=== PATIENT | female | born 1970 | race Caucasian/White ===

== ENCOUNTER 2021-05-11 07:36 | Outpatient (CLI) | payer MEDICARE, SELFPAY ==
--- NOTE | ~2021-05-11 | MR_ITS ---
EXAMINATION: MR ankle LT wo con DATE: 05/11/2021 08:23 INDICATION: Chronic left ankle pain and swelling post fall 3 months prior TECHNIQUE: Magnetic resonance imaging (MRI) of the left ankle was performed without intravenous contr ast. Sequences included sagittal, coronal, and axial proton-density weighted fast spin echo without a nd with fat saturation. COMPARISON: None. FINDINGS: Medial ankle ligaments: Deep and superficial deltoid ligaments as well as the spring ligament are normal. Lateral ankle ligaments: The anterior and posterior inferior tibiofibular ligaments are normal. There is thickening and mild i ncreased signal of the anterior talofibular without surrounding edema consistent with scarring relate d to chronic sprain. The calcaneofibular and posterior talofibular ligaments are normal. Tendons: Achilles tendon is normal. Fluid signal surrounding the normal peroneus longus and brevis tendons con sistent with mild peroneal tenosynovitis. The tibialis anterior and extensor hallucis longus and exte nsor digitorum longus tendons are normal. The tibialis posterior, flexor digitorum longus and flexor hallucis longus tendons are normal. Plantar fascia: Plantar aponeurosis is normal. Bones/other: There is prominent marrow edema at the dorsolateral aspect of the cuboid which could represent a bone contusion although given the interval elapsed time this could also represent advanced images of heal ing of a prior nondisplaced fracture with no residual fracture line. Otherwise normal marrow signal. There is mild thickening and minimal increased signal of the calcaneocuboid as well as the bifurcate ligament without surrounding edema consistent with additional scarring related to chronic sprains. Li sfranc ligament complex is normal. Fluid: Visualized amount of fluid in the joint spaces. No bursitis or other abnormal fluid collections. IMPRESSION: 1. Chronic sprains of the anterior talofibular, plantar calcaneal cuboid and bifurcate ligaments. 2. Prominent marrow edema at the dorsolateral aspect of the cuboid which could represent either bone contusion or advanced changes of healing of a nondisplaced fracture with no residual discernible frac ture line. 3. Mild peroneal tenosynovitis. Reviewed, dictated and finalized at location A. IMPRESSION: 1. Chronic sprains of the anterior talofibular, plantar calcaneal cuboid and bi furcate ligaments. 2. Prominent marrow edema at the dorsolateral aspect of the cuboid which could represent either bone contusion or advanced changes of healing of a nondisplace d fracture with no residual discernible fracture line. 3. Mild peroneal tenosynovitis.
== END 2021-05-11 07:37 ==
DX: M25.572 Pain in left ankle and joints of left foot (principal); G89.29 Other chronic pain; S93.492A Sprain of other ligament of left ankle, initial encounter; M79.89 Other specified soft tissue disorders; M65.872 Other synovitis and tenosynovitis, left ankle and foot
CPT/HCPCS: 73721

== ENCOUNTER 2022-09-04 18:00 | Emergency (ER) | payer MEDICARE, SELFPAY ==
--- NOTE | ~2022-09-04 | XR_ITS ---
EXAMINATION: XR foot LT min 3V DATE: 09/04/2022 18:54 INDICATION: Left foot pain TECHNIQUE: Dorsoplantar, lateral, and 2 oblique views of the left foot were obtained. COMPARISON: None. FINDINGS: Bone alignment is normal. No fracture is identified. There is mild polyarticular osteoarthr itis. There is dorsal soft tissue swelling of the foot overlying the metacarpals. IMPRESSION: 1. No acute osseous abnormality. Reviewed, dictated and finalized at location F. ROAD TRACK MECHANIC
[2022-09-04 18:23] VITALS: BP 127/88; PULSE 128; RESP 16; TEMP 37.1; O2SAT 100
--- NOTE | 2022-09-04 19:24 | ED.LOWEXIN ---
HPI - Extremity Injury (Lower) General Chief Complaint: Extremity Injury, Lower Stated Complaint: L. foot injury Time Seen by Provider: 09/04/22 18:58 Source: RN notes reviewed History of Present Illness HPI Narrative: Patient presents emergency room from home for right foot pain. Patient states that approximately 12:30 PM today she was working out when a work-up says that she was pushing had fallen over and landed on her right foot she states she has had pain in the top of the right foot since that time states pain is worse with any placement of weight on the right foot. She denies any other trauma or injury states that she did take Tylenol at home with minimal relief she denies any numbness or tingling of the extremity Related Data Allergies Allergy/AdvReac Type Severity Reaction Status Date / Time No Known Allergies Allergy Unverified 06/09/15 23:26 Review of Systems Review of Systems: Gen.: Denies fevers or chills Musculoskeletal: See HPI Neuro: Denies numbness, tingling, weakness Skin: Denies rash Endo: Denies DM PMFSH Past Medical History Medical History Aureliano disease Depression Family History Family History (Updated 06/15/14 @ 07:13 by DOCTOR UNKNOWN) Mother Family history of primary malignant neoplasm of liver Family history of lymphoma Sibling Family history of type 2 diabetes mellitus Grandparent Family history of heart disease in male family member before age 55 Other Family history of type 1 diabetes mellitus Social History Social History Smoking status: Former smoker Second hand tobacco smoke exposure: No Smoking end date: 10/19/12 Alcohol intake: never Exam Narrative: APPEARANCE: No acute distress, nontoxic, resting in bed Eyes: EOMI HEENT: Normocephalic, atraumatic, RESPIRATORY: No respiratory distress MUSCULOSKELETAl: Tender to palpation over the dorsal medial lateral and plantar aspect of the right foot there is no swelling or ecchymosis noted there is no tenderness of the medial lateral malleolus no proximal small fibula tenderness dorsalis pedis pulse 2+ neurovascular intact pain with placing weight on the right foot NEURO: Awake and alert. Following commands, speech normal, no focal deficits SKIN:: Warm, dry. Normal Color no rash or lesions Course Course Emergency Course: Discussed with patient results of workup and diagnosis. Discussed need for follow-up with primary care, proper use of medication, and reasons to return to the emergency department. Patient understands and agrees to current treatment plan Vital Signs Vital signs: Vital Signs Temperature 98.7 F 09/04/22 18:23 Pulse Rate 128 H 09/04/22 18:23 Respiratory Rate 16 09/04/22 18:23 Blood Pressure 127/88 09/04/22 18:23 Pulse Oximetry 100 09/04/22 18:23 Temperature 98.7 F 09/04/22 18:23 Pulse Rate 128 H 09/04/22 18:23 Respiratory Rate 16 09/04/22 18:23 Blood Pressure 127/88 09/04/22 18:23 Pulse Oximetry 100 09/04/22 18:23 MDM - Extremity Injury (Lower) Imaging Data Radiologist's impression: ITS Impressions Foot X-Ray 09/04/22 18:56 IMPRESSION: 1. No acute osseous abnormality. Discharge Plan Discharge Clinical Impression: Contusion of left foot Patient Disposition: Home, Self-Care Condition: Stable Instructions: Antibiotic Form, Crush Injury (ED) Additional Instructions: Return for increasing pain numbness or tingling in extremities or any other symptoms or concern Prescriptions: New ibuprofen 600 mg tablet 600 mg PO TID PRN (Reason: pain) Qty: 14 0RF Follow-up/Referrals: Madhu Zuniga MD [Physician] - (Follow-up in 1 to 2 days for further orthopedic treatment and evaluation) UNKNOWN,DOCTOR [Primary Care Provider] - (Follow up with your primary care physician in 1 to 2 days for further treatment and
[2022-09-04] MEDS: IBUPROFEN 600 MG TABLET PO (19:27)
== END 2022-09-04 20:50 | disposition home or self-care (01) ==
LOC: ANHED 20:50
PROVIDERS: Emergency Provider Emergency Medicine
DX: S90.32XA Contusion of left foot, initial encounter (principal); Z87.891 Personal history of nicotine dependence; W20.8XXA Other cause of strike by thrown, projected or falling object, initial encounter
CPT/HCPCS: 73630; 99283; A9270

== ENCOUNTER 2023-07-09 00:31 | Emergency (ER) | payer MEDICARE, SELFPAY ==
--- NOTE | ~2023-07-09 | XR_ITS ---
Clinical Indication: Syncope AP and lateral views of the chest: Comparison: 01/23/2016 Findings: The lungs are clear, without evidence of focal consolidation or pleural effusion. Cardiome diastinal silhouette is within normal limits. Bones and soft tissues are unremarkable. Impression: Normal chest. Reviewed, dictated and finalized at [facility]. Impression: Normal chest.
[2023-07-09 00:19] VITALS: BP 114/80; PULSE 82; RESP 15; TEMP 36.9; O2SAT 98
--- NOTE | 2023-07-09 02:42 | ECG_ITS ---
Measurements Intervals [place] Rate: 79 P: 239 CA: 114 QRS: 72 QRSD: 94 T: 60 QT: 398 QTc: 458 Interpretive Statements SINUS RHYTHM MINIMAL Q WAVES- ANTEROLAT/INF LEADS BORDERLINE ECG NO PREVIOUS ECG AVAILABLE FOR COMPARISON Electronically Signed On 07-09-2023 6:40:18 CDT by Gurpreet Nina D.O.
[2023-07-09] MEDS: SODIUM CHLORIDE 0.9% IV 1,000 ML 999 ML IV CONT (03:04)
[2023-07-09 03:08] LABS: Basophils Absolute Auto 0.1 K/mm3 (0.0-0.1); Basophils Percent Auto 0.8 % (0.2-1.2); Eosinophils Absolute Auto 0.2 K/mm3 (0-0.3); Eosinophils Percent Auto 1.6 % (0-4.4); Hematocrit 40.8 % (37.0-47.0); Hemoglobin 13.7 g/dL (12.0-15.0); Immature Granulocyte Absolute 0.06 K/mm3 (0.00-0.031); Immature Granulocyte Percent A 0.6 % (0-0.5); Lymphocytes Absolute Auto 3.99 K/mm3 (0.9-3.2); Lymphocytes Percent Auto 39.3 % (18.3-44.2); Mean Corpuscular HGB Conc 33.6 g/dl (32-36); Mean Corpuscular Hemoglobin 30.6 pg (26-34); Mean Corpuscular Volume 91.1 fl (80-100); Mean Platelet Volume 9.1 fl (7.4-10.4); Monocytes Absolute Auto 0.7 K/mm3 (0.1-0.6); Neutrophils Absolute Auto 5.2 K/mm3 (1.3-6.7); Neutrophils Percent Auto 50.7 % (45.5-73.1); Platelet Count Result 431 k/mm3 (150-375); Red Blood Count 4.48 M/mm3 (4.2-5.4); Red Cell Distribution Width 12.1 % (11.5-14.5); White Blood Count 10.2 K/mm3 (4.5-10.0)
--- NOTE | 2023-07-09 03:08 | ED.SYNCOPE ---
HPI - Syncope General Chief Complaint: Syncope Stated Complaint: LETHARGIC/ETOH+ Time Seen by Provider: 07/09/23 02:57 Source: patient and family ( friend ) Limitations: no limitations History of Present Illness HPI narrative: Patient is a 53-year-old female present to the emergency department via EMS for overall not feeling well and is accompanied by her friend. 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 Patient notes that she went to a baseball game earlier today and had approximately 4-5 drinks of alcohol and then when they were driving home shoes in the past after she and her friend noticed she was getting more more drowsy and in the recovery moment which the patient was not responding to her friend for 4 minutes which he got worried and called EMS for further evaluation. Patient states that she is known to Dr. Velma Mason who is her endoscopy technican at [facility]. Patient denies chest pain, shortness of breath, cough, fever, lightheadedness, numbness, weakness, dysuria, hematuria, urinary frequency, urinary urgency, vaginal bleeding, rash, headache, diarrhea, nausea, vomiting, abdominal pain, vision changes, sore throat, nasal congestion, unilateral lower extremity swelling, recent injuries, recent illness. No seizure activity reported. Patient reports mild drowsiness and chronic fatigue. Patient admits to not drinking much water today. Related Data Allergies Allergy/AdvReac Type Severity Reaction Status Date / Time No Known Allergies Allergy Unverified 06/09/15 23:26 Review of Systems Review of Systems: A 10 system review of systems was completed on the patient and is negative except for what is stated in the HPI. Nursing and ancillary documentation was reviewed. [facility] Past Medical History Medical History [place] disease Depression Family History Family History (Updated 06/15/14 @ 07:13 by DOCTOR UNKNOWN) Mother Family history of primary malignant neoplasm of liver Family history of lymphoma Sibling Family history of type 2 diabetes mellitus Grandparent Family history of heart disease in male family member before age 55 Other Family history of type 1 diabetes mellitus Social History Social History Smoking status: Former smoker Second hand tobacco smoke exposure: No Smoking end date: 10/19/12 Alcohol intake: never Comments At time of signature, I have reviewed and agree with nursing past medical, surgical, social and family history unless otherwise noted. Please see the nursing chart for further information. There is no relevant family history pertinent to the presenting complaint. Exam Narrative: CONST: No acute distress. Well nourished. HENMT: Head is normocephalic and atraumatic. Dry mucous membranes. No posterior oropharynx erythema. EYES: No conjunctival icterus, injection, or pallor. PERRL. No nystagmus. NECK: No meningeal signs. No palpable thyromegaly. No thyroid tenderness to palpation. RESP: Able to speak in full sentences. Normal respiratory effort. CTAB. CARDIO: Regular rate. Regular rhythm. 2+ DP and radial pulses bilaterally. GI: Nondistended. No tenderness to palpation. Soft. : No CVA tenderness to palpation. SKIN: No rashes or lesions noted on exposed skin. NEURO: Oriented x3. Moves all extremities. No focal neurological deficits. EXTREM: No pedal edema. PSYCH: Normal affect. Course Vital Signs Vital signs: Vital Signs Temperature 98.5 F 07/09/23 00:19 Pulse Rate 82 07/09/23 00:19 Respiratory Rate 15 07/09/23 00:19 Blood Pressure 114/80 07/09/23 00:19 Pulse Oximetry 98 07/09/23 00:19 Oxyge
[2023-07-09 03:11] LABS: Appearance Urine Clear (Clear); Bilirubin Urine Negative (Negative); Blood Urine Negative (Negative); Color Urine Yellow (Yellow); Glucose Urine UA Negative (Negative); Ketones Urine Negative (Negative); Leukocyte Esterase Ur Negative LEU/UL (Negative); Nitrate Urine Negative (Negative); Protein Urine Negative (Negative); Specific Grav Ur 1.004 (1.001-1.035); Urobilinogen Urine 0.2 mg/dL (<2.0)
[2023-07-09 03:13] LABS: Add Urine Microscopic? NO
[2023-07-09 03:18] LABS: Alanine Aminotransferase 23 U/L (6-35); Alkaline Phosphatase 58 U/L (38-126); Anion Gap 14 mmol/L (8-16); Aspartate Amino Transferase 28 U/L (14-36); Bilirubin,Total 0.5 mg/dL (0.2-1.3); Blood Urea Nitrogen 13 mg/dL (7-17); Calcium 8.6 mg/dL (8.4-10.2); Carbon Dioxide 22 mmol/L (22-30); Chloride 101 mmol/L (98-107); Estimated CRCL calculation 74 ml/min; Estimated Glomerular Filt Rate > 60; Ethanol 142 mg/dL (<10); Glucose 89 mg/dL (65-110); Potassium 3.8 mmol/L (3.4-5.0); Sodium 137 mmol/L (137-145)
[2023-07-09 03:30] LABS: Troponin I < 0.012 ng/mL (0.000-0.034)
[2023-07-09 04:34] LABS: Influenza A QL RT-PCR Negative (Negative); Influenza B QL RT-PCR Negative (Negative); SARS-CoV-2 RNA PCR Negative (Negative)
[2023-07-09 05:06] VITALS: BP 112/64; PULSE 70; RESP 14; O2SAT 100
[2023-07-09 05:36] LABS: Magnesium 2.2 mg/dL (1.6-2.3)
== END 2023-07-09 05:06 | disposition home or self-care (01) ==
PROVIDERS: Physician Assistant; Emergency Provider Student in an Organized Health Care Education/Training Program; PCP Hospitalist
DX: R55 Syncope and collapse (principal); E27.1 Primary adrenocortical insufficiency; R78.0 Finding of alcohol in blood; Y90.6 Blood alcohol level of 120-199 mg/100 ml; Z20.822 Contact with and (suspected) exposure to COVID-19; Z87.891 Personal history of nicotine dependence; Z79.52 Long term (current) use of systemic steroids; R94.31 Abnormal electrocardiogram [ECG] [EKG]
CPT/HCPCS: 36415; 71046; 80053; 80307; 81003; 81025; 83735; 84443; 84484; 85025; 87636; 93005; 96360; 99284; J7030

== ENCOUNTER 2023-09-08 14:17 | Inpatient (IN) | payer MEDICARE, SELFPAY ==
[2023-09-08] VITALS (58 sets, daily range): BP systolic 77–117; BP diastolic 46–78; PULSE 69–110; RESP 12–37; TEMP 35.5–37.3; O2SAT 93–100; BMI 20.6
--- NOTE | ~2023-09-08 | XR_ITS ---
EXAMINATION: XR chest 1V portable Exam Date/Time: 09/08/2023 22:48 CHURN DRILLER HELPER HISTORY: line placement Comparison: CT chest, same date. RESULT: Lines, tubes, and devices: Right IJ central line terminating at the distal SVC. Lungs and pleura: Clear. Cardiomediastinal silhouette: Stable. Other: No acute osseous finding. Excreted contrast in the bilateral collecting systems which exhibit mild bilateral calyceal dilation and left renal pelvis dilation. IMPRESSION: No acute cardiopulmonary process. Incidental note of mild bilateral caliectasis and left pelviectasis. Reviewed, dictated and finalized at location K. N DRILLER HELPER
--- NOTE | ~2023-09-08 | XR_ITS ---
EXAMINATION: XR chest 1V portable Exam Date/Time: 09/08/2023 20:35 TIE KNITTER HELPER HISTORY: covid, hypotensive Comparison: . RESULT: Lines, tubes, and devices: None. Lungs and pleura: Mild diffuse reticulonodular opacities. Cardiomediastinal silhouette: Stable. Other: No acute osseous or upper abdominal finding. Diffuse osseous demineralization. IMPRESSION: Pulmonary opacities may represent acute/chronic respiratory bronchiolitis. Osteopenia. Reviewed, dictated and finalized at location K. KNITTER HELPER IMPRESSION: Pulmonary opacities may represent acute/chronic respiratory bronchiolitis. Oste openia.
--- NOTE | ~2023-09-08 | CT_ITS ---
EXAMINATION: CT soft tissue neck chest w DATE: 09/08/2023 21:39 INDICATION: TECHNIQUE: Computed tomography (CT) of the chest and neck was performed with 75 mL Omnipaque-350 intr avenous contrast. Automated exposure control and iterative reconstruction technique were employed. Th e dose-length product was 412.64 mGy-cm. COMPARISON: None FINDINGS: CTA neck: The thyroid gland is unremarkable. The submandibular and parotid glands are symmetric. There is no cervical lymphadenopathy. There are no masses identified. The superior mediastinum i s unremarkable. The airway is unremarkable. Parapharyngeal and pre-glottic fat planes are preserv ed. Normal enhancing arteries. The orbits are unremarkable. Visualized sinuses and mastoid air c ells are well aerated. There is cervical spondylosis. CT chest: Thoracic aorta: No significant dilation or calcification. Lung parenchyma and airways: Dependent atelectasis. Airways are clear. Thoracic inlet, axillae and chest wall: No thyroid or soft tissue mass. No axillary lymphadenopathy. Mediastinum: No mass or lymphadenopathy. Heart and pericardium: Normal heart size. No pericardial effusion. Coronary artery calcifications: Absent. Pleura: No effusion or mass. Upper abdomen: Moderate distal esophageal and gastric wall edema. Thoracic bones: No acute osseous finding in the chest. IMPRESSION: Moderate esophagitis/gastritis. No other acute process detected in the neck or chest. Reviewed, dictated and finalized at location K. TECHNICAL LEAD
--- NOTE | ~2023-09-08 | US_ITS ---
EXAMINATION: US renal BI DATE: 09/12/2023 10:56 INDICATION: caliectasis and pelviectasis shown on chest x ray TECHNIQUE: Multiple grayscale and Doppler ultrasound images of the kidneys were obtained. COMPARISON: X-ray chest 10/08/2023 FINDINGS: The right kidney measures 10.1 x 4.2 x 4.9 cm. The left kidney measures 10.5 x 5.0 x 4.6 cm. The kidn eys demonstrate normal parenchymal echogenicity. No suspicious renal masses. There is no mild right p elviectasis. The bladder is normal. IMPRESSION: Mild right pelviectasis, otherwise unremarkable renal sonogram findings. Reviewed, dictated and finalized at location K. OMICS PROFESSOR
--- NOTE | 2023-09-08 14:37 | PC.NURSE ---
pt has tremors upon arrival but states this is normal for her. no further orders at this time
--- NOTE | 2023-09-08 15:39 | ED.URI ---
HPI - URI/Sore Throat General Chief Complaint: Upper Respiratory Infection Stated Complaint: body aches/strep exposure Time Seen by Provider: 09/08/23 15:36 Source: patient History of Present Illness HPI Narrative: This is a 53 year old female who presents with myalgias and a sore throat. Her sister had Strep so she is concerned she was exposed. She has also been having a fever to max 101 F. She has been using Advil, last dose yesterday. She also felt chilled yesterday. She normally takes prednisone for her Addisons but didn't take it yesterday or today beecause not really eating or drinking. She states she doesn't have much energy. No cough, chest pain, or difficulty breathing. Related Data Allergies Allergy/AdvReac Type Severity Reaction Status Date / Time No Known Allergies Allergy Unverified 06/09/15 23:26 [facility] Past Medical History Medical History (Updated 09/09/23 @ 17:51 by Mai Gonzalez MD) [place] disease Depression Hypothyroidism Family History Family History Mother Family history of primary malignant neoplasm of liver Family history of lymphoma Sibling Family history of type 2 diabetes mellitus Grandparent Family history of heart disease in male family member before age 55 Other Family history of type 1 diabetes mellitus Social History Social History Smoking status: Former smoker Tobacco type: cigarettes Second hand tobacco smoke exposure: No Smoking end date: 10/19/02 Alcohol intake: current Drinks per week: 1 Substance use: never Substance use type: does not use Lack of Transportation: No Lack of Food: Never True Current Housing: I Have Housing Concerned About Future Housing: No Difficulty Paying Gas/Electric Bills: No Difficulty Paying for Meds: No Currently Unemployed: No Education: Decline to Answer Difficulty w/ Childcare or Family Care: No Spiritual care concerns: No Exam Narrative: GENERAL: well-nourished, appears tired. HEAD: Normocephalic, atraumatic. EYES: Grossly normal. No scleral icterus. Non injected ENT: Nares clear, no rhinorrhea or epistaxis. Mucous membranes moist. Difficulty visualizing posterior oropharynx due to Mallampati III but do appreciate erythematous posterior oropharynx. . NECK: Supple. Mild tender right cervical lymphadenopathy. No JVD CHEST: Clear to auscultation. No respiratory distress. HEART: Regular rate and rhythm. Normal peripheral pulses. ABDOMEN: Soft, nontender, nondistended, EXTREMITIES: Normal range of motion. No edema. SKIN: Warm, dry, no rash. NEURO: No focal deficits. Alert and oriented x3. Course Vital Signs Vital signs: Vital Signs Temperature 99.1 F 09/08/23 14:19 Pulse Rate 110 H 09/08/23 14:19 Respiratory Rate 16 09/08/23 14:19 Blood Pressure 77/55 L 09/08/23 14:19 Pulse Oximetry 100 09/08/23 14:19 Temperature 98.0 F 09/09/23 16:00 Pulse Rate 60 09/09/23 16:00 Respiratory Rate 16 09/09/23 16:00 Blood Pressure 90/53 L 09/09/23 16:00 Pulse Oximetry 100 09/09/23 16:00 Oxygen Delivery Room Air 09/09/23 09:18 Oxygen Flow Rate 1 09/08/23 19:57 Procedures Central Line Placement Right IJ: Central Line Date: 09/08/23 Central Line Time: 22:22 Discussed w/ the patient/family/POA,the placement of a central venous catheter, including its clinical necessity/indication & associated potential risks, benifits and alternatives.: Yes The patient/family/POA understand(s) and acknowledge(s) the need to proceed with central venous catheter insertion as an important element of the patient's clinical management.: Yes Performed Emergently - Given emergent patient condition, temporal constraints may have precluded informed consent.: Yes Time Out Performed: Yes Patient Placed on Monitor/Pulse Ox: Yes Max. Sterile B
[2023-09-08] MEDS: SODIUM CHLORIDE 0.9% IV 1,000 ML 999 ML IV CONT (16:15)
[2023-09-08 16:31] LABS: Basophils Absolute Auto 0.1 K/mm3 (0.0-0.1); Basophils Percent Auto 0.6 % (0.2-1.2); Eosinophils Absolute Auto 0.1 K/mm3 (0-0.3); Eosinophils Percent Auto 0.7 % (0-4.4); Hemoglobin 14.1 g/dL (12.0-15.0); Immature Granulocyte Absolute 0.09 K/mm3 (0.00-0.031); Immature Granulocyte Percent A 0.7 % (0-0.5); Lymphocytes Absolute Auto 4.45 K/mm3 (0.9-3.2); Lymphocytes Percent Auto 32.6 % (18.3-44.2); Mean Corpuscular HGB Conc 33.6 g/dl (32-36); Mean Corpuscular Hemoglobin 30.9 pg (26-34); Mean Corpuscular Volume 92.1 fl (80-100); Mean Platelet Volume 9.3 fl (7.4-10.4); Monocytes Absolute Auto 2.1 K/mm3 (0.1-0.6); Monocytes Percent Auto 15.2 % (2.6-8.5); Neutrophils Absolute Auto 6.9 K/mm3 (1.3-6.7); Neutrophils Percent Auto 50.2 % (45.5-73.1); Platelet Count Result 341 k/mm3 (150-375); Red Blood Count 4.56 M/mm3 (4.2-5.4); Red Cell Distribution Width 12.4 % (11.5-14.5); White Blood Count 13.7 K/mm3 (4.5-10.0)
[2023-09-08 16:51] LABS: Alanine Aminotransferase 13 U/L (6-35); Albumin Level 4.8 g/dL (3.5-5.1); Alkaline Phosphatase 63 U/L (38-126); Anion Gap 12 mmol/L (8-16); Aspartate Amino Transferase 28 U/L (14-36); Bilirubin,Total 1.1 mg/dL (0.2-1.3); Blood Urea Nitrogen 25 mg/dL (7-17); Calcium 9.3 mg/dL (8.4-10.2); Carbon Dioxide 23 mmol/L (22-30); Chloride 90 mmol/L (98-107); Estimated CRCL calculation 41 ml/min; Estimated Glomerular Filt Rate 47; Glucose 66 mg/dL (65-110); Potassium 4.1 mmol/L (3.4-5.0); Sodium 125 mmol/L (137-145)
[2023-09-08 17:00] LABS: Creatine Kinase 27 U/L (30-135)
[2023-09-08 17:02] LABS: Influenza A QL RT-PCR Negative (Negative); Influenza B QL RT-PCR Negative (Negative); SARS-CoV-2 RNA PCR Positive (Negative)
[2023-09-08 17:05] LABS: Strep Group A RT-PCR NOT DETECTED (Negative)
[2023-09-08] MEDS: ACETAMINOPHEN 500 MG TABLET 1000 MG PO (18:22)
[2023-09-08 18:28] LABS: Monoscreen Negative (Negative); Negative Monotest Control Negative (Negative); Positive Monotest Control Positive (Positive)
[2023-09-08] MEDS: LACTATED RINGERS 1,000 ML 125 ML IV CONT (18:47)
[2023-09-08] MEDS: HYDROCORTISONE SODIUM SUCCINATE 100 MG/2 ML VIAL IV PUSH (19:38)
[2023-09-08] MEDS: LACTATED RINGERS 1,000 ML 999 ML IV CONT (19:38)
--- NOTE | 2023-09-08 19:47 | PC.NURSE ---
while sleeping pt O2 sat dropped to 88-89% with good wave form. applied O2 NC 2L per MD verbal orders.
--- NOTE | 2023-09-08 20:34 | PC.NURSE ---
called report @2008 and [facility] stated they were in contact with ED charge nurse about assignment because they do not feel comfortable accepting a pt with their BP readings. no further orders at this time. ER charge nurse and MD notified
--- NOTE | 2023-09-08 20:35 | PM.IMHP ---
H&P: HPI History of Present Illness Date/Time: 09/08/23 20:35 Chief Complaint: ALTERED MENTAL STATUS Narrative: This is a 53-year-old female with past medical history significant for [place]'s disease. Patient presented to the emergency room due to altered mental status, in emergency room patient was hypotensive which prompted a stress does steroids which temporarily helped improved blood pressure however patient became hypotensive later on. At the time of my visit I was unable to obtain any history as patient is obtunded, lethargic. Most of the history has been obtained upon reviewing medical records and friend who was at bedside stated that she has not been feeling well for the last 2 days or so. Preliminary workup was significant for sodium of 125, chloride 90, BUN 25, creatinine 1.2, tested positive for COVID. Patient has been admitted for further evaluation management and treatment. EXAMINATION:? XR chest 1V portable Exam Date/Time:? 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 Comparison: . RESULT: Lines, tubes, and devices:? None. Lungs and pleura: Mild diffuse reticulonodular opacities. Cardiomediastinal silhouette:? Stable. Other:? No acute osseous or upper abdominal finding. Diffuse osseous demineralization. ? IMPRESSION: Pulmonary opacities may represent acute/chronic respiratory bronchiolitis. Osteopenia. EXAMINATION: CT soft tissue neck chest w DATE: 09/08/2023 21:39 INDICATION: TECHNIQUE: Computed tomography (CT) of the chest and neck was performed with 75 mL Omnipaque-350 intravenous contrast. Automated exposure control and iterative reconstruction technique were employed. The dose-length product was 412.64 mGy-cm. COMPARISON: None FINDINGS: CTA neck:? The thyroid gland is unremarkable. ? The submandibular and parotid glands are symmetric. ? There is no cervical lymphadenopathy.? There are no masses identified.? ? The superior mediastinum is unremarkable. ? The airway is unremarkable. ? Parapharyngeal and pre-glottic fat planes are preserved. ? Normal enhancing arteries.? The orbits are unremarkable. ? Visualized sinuses and mastoid air cells are well aerated.? There is cervical spondylosis. CT chest: Thoracic aorta: No significant dilation or calcification. Lung parenchyma and airways: Dependent atelectasis. Airways are clear. Thoracic inlet, axillae and chest wall: No thyroid or soft tissue mass. No axillary lymphadenopathy. Mediastinum: No mass or lymphadenopathy. Heart and pericardium: Normal heart size. No pericardial effusion. Coronary artery calcifications: Absent. Pleura: No effusion or mass. Upper abdomen: Moderate distal esophageal and gastric wall edema. Thoracic bones: No acute osseous finding in the chest. IMPRESSION: Moderate esophagitis/gastritis. No other acute process detected in the neck or chest. Review of Systems Review of Systems: ROS unobtainable: Yes unobtainable due to mental status (Obtundation /lethargy) [facility] Past Medical History Medical History (Updated 09/09/23 @ 02:33 by Evelio Chappell MD) Aureliano disease Depression Family History Family History Mother Family history of primary malignant neoplasm of liver Family history of lymphoma Sibling Family history of type 2 diabetes mellitus Grandparent Family history of heart disease in male family member before age 55 Other Family history of type 1 diabetes mellitus Social History Social History Smoking status: Former smoker Tobacco type: cigarettes Second hand tobacco smoke exposure: No Smoking end date: 10/19/02 Alcohol intake: current Drinks per week: 1 Substance use: never Substance use type: does not use Lack of Transportation: No Lack of Food: Never True Current Housing: I Have Housing Concerned About Future Housing: No Difficulty Paying Gas/Elect
[2023-09-08 21:17] LABS: Lactic Acid Reflex 0.8 mmol/L (0.7-2.0)
[2023-09-08 21:25] LABS: NT Pro B Type Natriuretic Pept 22 pg/mL (19.9-100)
[2023-09-08] MEDS: NOREPINEPHRINE 8 MG/D5W 250 ML 8 MG/250 ML BAG 9.38 MG IV CONT (22:21)
[2023-09-08 23:00] LABS: Appearance Urine Cloudy (Clear); Bacteria Urine None Seen /hpf; Bilirubin Urine Negative (Negative); Blood Urine Negative (Negative); Color Urine Yellow (Yellow); Glucose Urine UA Negative (Negative); Ketones Urine 1+ mg/dL (Negative); Leukocyte Esterase Ur Negative LEU/UL (Negative); Nitrate Urine Negative (Negative); Non Pathogenic Casts 0-2; Protein Urine Negative (Negative); RBC Urine 0-2 /hpf (0-2); Specific Grav Ur 1.015 (1.001-1.035); Squamous Epithelial Cell Urine None seen /hpf (Few); Urobilinogen Urine 0.2 mg/dL (<2.0); WBC Urine 0-5 /hpf; pH Urine 5.5 (5.0-9.0)
[2023-09-08 23:05] LABS: Add Urine Microscopic? YES
--- NOTE | 2023-09-08 23:09 | PC.NURSE ---
norepinephrine and LR are now going through central line instead of peripheral iv.
[2023-09-08] MEDS: AZITHROMYCIN 500 MG/NS 250 ML 500 MG/250 ML BAG 250 MG IVPB (23:36)
--- NOTE | 2023-09-08 23:50 | ADMGEN ---
This patient, Krista Chavira, was admitted to Intensive Care Unit-7. Patient/family oriented to hospital policies and general routines including ID bracelet, bed and alarms, visiting hours, pain management, procedures, bathroom and other care routines, personal items, smoking policy, room service/diet, and visiting hours. Information on how to activate the Rapid Response Team has been discussed. Patient/Family are encouraged to report perceived risks to care and to ask questions if they do not understand what they are told or what they should do.
[2023-09-09] VITALS (41 sets, daily range): BP systolic 79–113; BP diastolic 49–70; PULSE 55–86; RESP 11–17; TEMP 35.4–36.7; O2SAT 96–100
--- NOTE | 2023-09-09 | ECHO_ITS ---
Patient Info Name: Krista Chavira Age: 53 years : 1970 Gender: Female Ht: 63 in Wt: 116 lbs BSA: 1.53 m2 HR: 67 bpm BP: 101 / 67 mmHg Heart Rhythm: Sinus Rhythm Technical Quality: Good Exam Date: 09/09/2023 9:03 AM Exam Location: Echo Lab Patient Status: Inpatient Admit Date: 09/08/2023 Staff Ordering Physician: Evelio Chappell MD Straight Line Press Setter: Nahid Arevalo RDCS Attending Provider: Srini Martini MD Referring Physician: Ta LE; Exam Type: CA echo doppler color flow Study Info Indications - hypotension Complete two-dimensional, color flow and Doppler transthoracic echocardiogram is performed. Summary 1. Complete two-dimensional, color flow and Doppler transthoracic echocardiogram is performed. 2. Left ventricular chamber dimension is normal. 3. Left ventricular systolic function is normal, estimated at 65-70%. 4. There is no increased left ventricular wall thickness. 5. The left ventricular diastolic function is normal. 6. There is mild tricuspid valve regurgitation. Left Ventricle Left ventricular chamber dimension is normal. Left ventricular systolic function is normal, estimated at 65-70%. There is no increased left ventricular wall thickness. The left ventricular diastolic function is normal. Right Ventricle Right ventricular chamber dimension is normal. Right ventricular systolic function is normal. Left Atria Left atrial chamber dimension is normal. Right Atria Right atrial chamber dimension is normal. Atrial Septum Intact interatrial septum visualized by color flow imaging. Aortic Valve The aortic valve is trileaflet. There is mild aortic valve sclerosis. There is no aortic valve stenosis. There is trace aortic valve regurgitation. Pulmonic Valve The pulmonic valve is normal. There is no pulmonic valve stenosis. There is trace pulmonic regurgitation. Mitral Valve The mitral valve has normal leaflets. There is no mitral valve stenosis. There is trace mitral valve regurgitation. Tricuspid Valve The tricuspid valve leaflets are normal. There is no significant tricuspid valve stenosis. There is mild tricuspid valve regurgitation. No pulmonary hypertension, estimated pulmonary arterial systolic pressure is 21 mmHg. Pericardium/Pleural The pericardium appears epicardial fat pad. There is trivial pericardial effusion. Aorta The aortic root size at the sinus of Valsalva is normal. Left Ventricular Outflow Tract Name Value Normal LVOT 2D LVOT Diameter 1.9 cm LVOT Doppler LVOT Peak Gradient 3 mmHg LVOT Mean Gradient 2 mmHg LVOT VTI 20 cm LVOT VTI/AV VTI Ratio 0.8 LVOT Stroke Volume 55 ml LVOT CO 3.9 l/min LVOT CI 2.6 l/min/m2 Pulmonic Valve Name Value Normal RVOT Doppler
--- NOTE | 2023-09-09 00:45 | PC.NURSE ---
Unable to obtain home medications at this time. Patient does not have list and is unable to provide dosages of medications taken at home. Will need to call pharmacy to obtain this information.
[2023-09-09] MEDS: LACTATED RINGERS 1,000 ML 125 ML IV CONT (02:39)
[2023-09-09] MEDS: HYDROCORTISONE SODIUM SUCCINATE 100 MG/2 ML VIAL IV PUSH ×3 (05:13→21:13)
[2023-09-09] MEDS: ENOXAPARIN 40 MG/0.4 ML SYRINGE SUB-Q (08:47)
[2023-09-09] MEDS: ACETAMINOPHEN 325 MG TABLET 650 MG PO (08:47)
--- NOTE | 2023-09-09 09:01 | WPDCNINT ---
Assessment and Plan Assessment and plan (1) Hypotension: Code(s): I95.9 - Hypotension, unspecified Status: Acute Assessment and Plan: Patient was found to be hypotensive in the ER. Her lactic acid level was normal. Likely multifactorial secondary to overly me, dehydration, adrenal insufficiency and possible sepsis Continue IV fluids Continue Levophed titration Continue stress dose hydrocortisone (2) Hypothyroidism: Code(s): E03.9 - Hypothyroidism, unspecified Status: Acute Assessment and Plan: Check TSH Resume levothyroxine (3) Sepsis: Code(s): A41.9 - Sepsis, unspecified organism Status: Acute Assessment and Plan: Patient presented with findings consistent with sepsis She does have pharyngitis which most likely is viral secondary to COVID-19 Patient was given empiric antibiotics for pneumonia but her CT scan did not show any inflammation Strep testing was negative Will hold further antibiotics at this time (4) JAMIN (acute kidney injury): Code(s): N17.9 - Acute kidney failure, unspecified Status: Acute Assessment and Plan: Likely secondary to hypotension and dehydration Continue IV fluids Monitor urine output electrolytes and creatinine If it does not improve with IV fluids, will do further testing including Normal CK level (5) COVID-19: Code(s): U07.1 - COVID-19 Status: Acute Assessment and Plan: Patient tested positive for COVID-19. 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 This critical care time included obtaining a history; examining the patient; pulse oximetry; ordering and review of studies; arranging urgent treatment with development of a management plan; evaluation of patient's response to treatment; frequent reassessment; and discussions with other providers. It was exclusive of separately billable procedures and treating other patients and teaching time. Please see Assessment and Plan section and the rest of the note for further information on patient assessment and treatment News Librarian Consult Note Consult date: 09/09/23 Reason for consult: Hypotension HPI: Krista Chavira is a 53 year old female with past medical history of Dallam's disease depression and hypothyroidism who presented to ER today last night with feeling off body aches weakness and sore throat. Patient states that from last few days she has had body aches, low-grade fever, sore throat and feeling weak and tired. She felt nauseous but denies any vomiting. No abdominal pain. She denies any chest pain cough shortness of breath. She denies any dysuria hematuria hematemesis melena. No constipation. On Thursday she had few episodes of loose bowel movements but no blood in it. She she denies any exposure to anyone who is sick or eating outside. She is vaccinated against COVID, denies any smoking, drinks alcohol once a week and denies any other drug use.. In the ED patient was found to be hypotensive, elevated creatinine at 1.2, tested positive for COVID, CT neck and chest were unremarkable. Was given IV fluid bolus, started on Levophed, right IJ central venous catheter was placed as and admitted to IC
[2023-09-09 09:05] LABS: Basophils Percent Auto 0.2 % (0.2-1.2); Hematocrit 34.1 % (37.0-47.0); Hemoglobin 11.5 g/dL (12.0-15.0); Immature Granulocyte Absolute 0.12 K/mm3 (0.00-0.031); Immature Granulocyte Percent A 0.9 % (0-0.5); Lymphocytes Absolute Auto 1.09 K/mm3 (0.9-3.2); Lymphocytes Percent Auto 8.3 % (18.3-44.2); Mean Corpuscular HGB Conc 33.7 g/dl (32-36); Mean Corpuscular Hemoglobin 31.1 pg (26-34); Mean Corpuscular Volume 92.2 fl (80-100); Mean Platelet Volume 9.2 fl (7.4-10.4); Monocytes Absolute Auto 0.4 K/mm3 (0.1-0.6); Neutrophils Absolute Auto 11.5 K/mm3 (1.3-6.7); Neutrophils Percent Auto 87.6 % (45.5-73.1); Platelet Count Result 296 k/mm3 (150-375); Red Cell Distribution Width 12.1 % (11.5-14.5); White Blood Count 13.1 K/mm3 (4.5-10.0)
[2023-09-09 09:17] LABS: Alanine Aminotransferase 13 U/L (6-35); Albumin Level 3.4 g/dL (3.5-5.1); Alkaline Phosphatase 46 U/L (38-126); Anion Gap 6 mmol/L (8-16); Aspartate Amino Transferase 21 U/L (14-36); Bilirubin,Total 0.4 mg/dL (0.2-1.3); Blood Urea Nitrogen 18 mg/dL (7-17); Calcium 8.3 mg/dL (8.4-10.2); Carbon Dioxide 24 mmol/L (22-30); Chloride 102 mmol/L (98-107); Estimated CRCL calculation 68 ml/min; Estimated Glomerular Filt Rate > 60; Glucose 136 mg/dL (65-110); Magnesium 1.8 mg/dL (1.6-2.3); Potassium 4.1 mmol/L (3.4-5.0); Sodium 132 mmol/L (137-145)
[2023-09-09 09:58] LABS: Procalcitonin 0.1 ng/mL
[2023-09-09] MEDS: PANTOPRAZOLE 40 MG TABLET PO (10:26)
[2023-09-09] MEDS: LEVOTHYROXINE SODIUM 125 MCG TABLET PO (10:26)
[2023-09-09] MEDS: LACTATED RINGERS 1,000 ML 75 ML IV CONT ×2 (10:29→21:57)
[2023-09-09 11:19] LABS: Free T4 Free Thyroxine Reflex 0.57 ng/dL (0.78-2.19)
[2023-09-09] MEDS: ALBUMIN HUMAN 5% 250 ML IV CONT (11:20)
[2023-09-09] MEDS: MIDODRINE HCL 10 MG TABLET PO ×2 (14:06→17:00)
--- NOTE | 2023-09-09 17:05 | PM.IMPN ---
Progress Note: A&P Assessment and Plan (1) Hypotension: Code(s): I95.9 - Hypotension, unspecified Status: Acute Assessment and Plan: Patient still hypotensive Patient need norepinephrine likely multifactorial secondary to overly me, dehydration, adrenal insufficiency and possible sepsis Continue IV fluids On levophed titration Continue stress dose hydrocortisone (2) Hypothyroidism: Code(s): E03.9 - Hypothyroidism, unspecified Status: Acute Assessment and Plan: Check TSH Resume levothyroxine (3) Sepsis: Code(s): A41.9 - Sepsis, unspecified organism Status: Acute Assessment and Plan: Patient was given empiric antibiotics for pneumonia but her CT scan did not show any inflammation Strep testing was negative Will hold further antibiotics at this time (4) JAMIN (acute kidney injury): Code(s): N17.9 - Acute kidney failure, unspecified Status: Acute Assessment and Plan: Avoid nephrotoxic medication, wrist blood pressure Monitor urine output electrolytes and creatinine Normal CK level (5) COVID-19: Code(s): U07.1 - COVID-19 Status: Acute Assessment and Plan: Patient tested positive for COVID-19. She is on room air CT scan does not show any inflammatory changes in the lung No specific treatment COVID-19 except isolation and symptomatic treatment (6) [place] disease: Code(s): E27.1 - Primary adrenocortical insufficiency Status: Acute Assessment and Plan: Patient has history of Z[place] disease and was taking her prednisone and Florinef until Thursday Continue hydrocortisone Plan DVT prophylaxis -Lovenox Stress ulcer prophylaxis -Protonix Nutrition -diet ordered Code Status - Full Code Subjective Date/time seen: 09/09/23 17:05 Interval history: I saw and examined patient today, patient feels tired, blood pressure still, patient is on norepinephrine, no new issue even overnight Exam Narrative: General: Pt is alert awake and in NAD Lungs/Chest: Trachea central Clear BS B/L, No crackles or wheezing. Cardiac: RRR. Normal S1 S2. No murmurs Circulation: Pedal pulses are intact and symmetrical. Abdomen: Normal bowel sounds.. Soft. NT. ND. Extremities: No clubbing, cyanosis or edema. Warm : Batista in place Neurologic: Follows commands. Moves all 4 extremities PERRL Skin: No Rash HEENT: Redness on the lateral and posterior aspect of pharynx Objective Data Vital Signs Vital Signs: Vital Signs - 24 hr 09/08/23 17:11 09/08/23 17:15 09/08/23 17:21 Temperature Pulse Rate 90 91 92 Respiratory Rate 17 14 12 Blood Pressure 114/78 101/77 Pulse Oximetry Oxygen Delivery Oxygen Flow Rate 09/08/23 17:49 09/08/23 17:51 09/08/23 18:00 Temperature Pulse Rate 103 H 98 95 Respiratory Rate 16 14 18 Blood Pressure 108/69 Pulse Oximetry Oxygen Delivery Oxygen Flow Rate 09/08/23 18:01 09/08/23 18:11 09/08/23 18:15 Temperature Pulse Rate 95 102 H 100 Respiratory Rate 18 21 H 20 Blood Pressure 103/68 102/69 Pulse Oximetry 100 Oxygen Delivery Oxygen Flow Rate 09/08/23 18:33 09/08/23 18:41 09/08/23 18:45 Temperature Pulse Rate 93 92 95 Respiratory Rate 16 18 25 H Blood Pressure 83/49 L Pulse Oximetry Oxygen Delivery Oxygen Flow Rate 09/08/23 19:00 09/08/23 19:01 09/08/23 19:11 Temperature Pulse Rate 93 94 99 Respiratory Rate 19 19 20 Blood Pressure 85/55 L 87/60 L Pulse Oximetry 96 96 100 Oxygen Delivery Oxygen Flow Rate 09/08/23 19:12 09/08/23 19:15 09/08/23 19:21 Temperature Pulse Rate 95 91 89 Respiratory Rate 20 12 18 Blood Pressure 94/64 L Pulse Oximetry 98 99 96 Oxygen Delivery Oxygen Flow Rate 09/08/23 19:30 09/08/23 19:31 09/08/23 19:57 Temperature Pulse Rate 88 87 Respiratory Rate 17 17 Blood Pressure 88/61 L Pulse Oximetry 93 93 97 Oxygen Delivery Nasal Cannula O
--- NOTE | 2023-09-09 22:05 | ECG_ITS ---
Measurements Intervals [place] Rate: 55 P: 77 [place]: 190 QRS: 69 QRSD: 94 T: 64 QT: 495 QTc: 476 Interpretive Statements SINUS BRADYCARDIA BORDERLINE T WAVE ABNORMALITY- ANTERIOR LEADS BASELINE WANDER- AVR, AVL, AVF, V4-V5 ABNORMAL ECG COMPARED TO ECG 07/09/2023 00:25:52 SINUS BRADYCARDIA NOW PRESENT Electronically Signed On 09-10-2023 8:46:42 ANESTHESIA ASSISTANT by Gurpreet Nina D.O.
[2023-09-10] VITALS (17 sets, daily range): BP systolic 86–111; BP diastolic 55–78; PULSE 46–72; RESP 12–16; TEMP 36.2–36.9; O2SAT 99–100
[2023-09-10 04:48] LABS: Hematocrit 29.5 % (37.0-47.0); Hemoglobin 9.9 g/dL (12.0-15.0); Mean Corpuscular HGB Conc 33.6 g/dl (32-36); Mean Corpuscular Hemoglobin 31.2 pg (26-34); Mean Corpuscular Volume 93.1 fl (80-100); Mean Platelet Volume 9.4 fl (7.4-10.4); Platelet Count Result 296 k/mm3 (150-375); Red Blood Count 3.17 M/mm3 (4.2-5.4); Red Cell Distribution Width 12.4 % (11.5-14.5)
[2023-09-10 05:00] LABS: Alanine Aminotransferase 14 U/L (6-35); Albumin Level 2.7 g/dL (3.5-5.1); Alkaline Phosphatase 38 U/L (38-126); Anion Gap 5 mmol/L (8-16); Aspartate Amino Transferase 28 U/L (14-36); Bilirubin,Total 0.3 mg/dL (0.2-1.3); Blood Urea Nitrogen 9 mg/dL (7-17); Calcium 7.1 mg/dL (8.4-10.2); Carbon Dioxide 23 mmol/L (22-30); Chloride 109 mmol/L (98-107); Estimated CRCL calculation 92 ml/min; Estimated Glomerular Filt Rate > 60; Glucose 97 mg/dL (65-110); Magnesium 1.7 mg/dL (1.6-2.3); Potassium 3.2 mmol/L (3.4-5.0); Sodium 137 mmol/L (137-145)
[2023-09-10] MEDS: HYDROCORTISONE SODIUM SUCCINATE 100 MG/2 ML VIAL IV PUSH ×3 (05:36→21:14)
[2023-09-10] MEDS: LEVOTHYROXINE SODIUM 125 MCG TABLET PO (05:36)
[2023-09-10] MEDS: PANTOPRAZOLE 40 MG TABLET PO (08:47)
[2023-09-10] MEDS: MIDODRINE HCL 10 MG TABLET PO ×3 (08:47→16:32)
[2023-09-10] MEDS: ACETAMINOPHEN 325 MG TABLET 650 MG PO (08:47)
[2023-09-10] MEDS: ENOXAPARIN 40 MG/0.4 ML SYRINGE SUB-Q (08:48)
--- NOTE | 2023-09-10 10:41 | WPDINTPN ---
Progress Note: A&P Assessment and Plan (1) Hypotension: Qualifiers: Hypotension type: other hypotension type Qualified Code(s): I95.89 - Other hypotension Code(s): I95.9 - Hypotension, unspecified Status: Acute Assessment and Plan: Patient was found to be hypotensive in the ER. Her lactic acid level was normal. Likely multifactorial secondary to hypovolemia, dehydration, adrenal insufficiency and possible sepsis Blood pressure is now improved and patient has been weaned off Levophed Will discontinue further iV fluids Continue stress dose hydrocortisone (2) Hypothyroidism: Code(s): E03.9 - Hypothyroidism, unspecified Status: Acute Assessment and Plan: Patient's TSH is high and T4 is low Her compliance is questionable I have resumed her levothyroxine (3) Sepsis: Qualifiers: Sepsis acute organ dysfunction status: unspecified Sepsis type: sepsis due to unspecified organism Qualified Code(s): A41.9 - Sepsis, unspecified organism Code(s): A41.9 - Sepsis, unspecified organism Status: Acute Assessment and Plan: Patient presented with findings consistent with sepsis She does have pharyngitis which most likely is viral secondary to COVID-19 Patient was given empiric antibiotics for pneumonia but her CT scan did not show any inflammation Strep testing was negative Will hold further antibiotics at this time (4) JAMIN (acute kidney injury): Code(s): N17.9 - Acute kidney failure, unspecified Status: Acute Assessment and Plan: Likely secondary to hypotension and dehydration Resolved with IV fluids. Hold further IV fluids now Monitor urine output electrolytes and creatinine Normal CK level (5) COVID-19: Code(s): U07.1 - COVID-19 Status: Acute Assessment and Plan: Patient tested positive for COVID-19. 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 Afebrile Levophed weaned off Continues to be on IV fluids Sinus bradycardia was sleeping. Normal sinus rhythm at this time Good urine output other vitals acceptable Feels tired. Appetite poor. Denies any other complaints all other systems were reviewed and were negative Review of Systems Review of Systems: All systems reviewed & are unremarkable except as noted in HPI and below (HPI) Exam Narrative: General: Pt is alert awake and in NAD Lungs/Chest: Trachea central Clear BS B/L, No crackles or wheezing. Cardiac: RRR. Normal S1 S2. No murmurs Circulation: Pedal pulses are intact and symmetrical. Abdomen: Normal bowel sounds.. Soft. NT. ND. Extremities: No clubbing, cyanosis or edema. Warm : Batista in place Neurologic: Follows commands. Moves all 4 extremities PERRL Skin: No Rash HEENT: Redness on the lateral and posterior aspect of pharynx which was examined on the 1st day Objective Data Vital Signs Vital Signs: Vital Signs - 24 hr 09/09/23 11:00 09/09/23 12:00 09/09/23 12:00 Temperature 36.5 C 36.5 C 36.4 C Pulse Rate 73 Respiratory Rate 14 Blood Pressure 92/66 L Pulse Oximetry 100 09/09/23 12:00 09/09/23 13:00 09/09/23 13:05 Temperature 36.4 C Pulse Rate 70 Respiratory Rate Blood Pressure 93/60 L Pulse Oximetry 09/09/23 14:00 09/09/23 14:00 09/09/23 14:00 Temperature 36.5 C 36.6 C Pulse Rate 80 60 Respiratory
[2023-09-10] MEDS: MAGNESIUM SULF 2 GM/WATER 50ML 2 GM/50 ML BAG IVPB (10:52)
[2023-09-10] MEDS: POTASSIUM CHLORIDE 20 MEQ ER TABLET 40 MEQ PO ×2 (10:52→14:17)
--- NOTE | 2023-09-10 13:43 | PM.IMPN ---
Progress Note: A&P Assessment and Plan (1) Hypotension: Qualifiers: Hypotension type: other hypotension type Qualified Code(s): I95.89 - Other hypotension Code(s): I95.9 - Hypotension, unspecified Status: Acute Assessment and Plan: Patient was found to be hypotensive in the ER. Her lactic acid level was normal. Likely multifactorial secondary to hypovolemia, dehydration, adrenal insufficiency and possible sepsis Blood pressure is now improved and patient has been weaned off Levophed Will discontinue further iV fluids Continue stress dose hydrocortisone (2) Hypothyroidism: Code(s): E03.9 - Hypothyroidism, unspecified Status: Acute Assessment and Plan: Patient's TSH is high and T4 is low Her compliance is questionable I have resumed her levothyroxine (3) Sepsis: Qualifiers: Sepsis acute organ dysfunction status: unspecified Sepsis type: sepsis due to unspecified organism Qualified Code(s): A41.9 - Sepsis, unspecified organism Code(s): A41.9 - Sepsis, unspecified organism Status: Acute Assessment and Plan: Patient presented with findings consistent with sepsis She does have pharyngitis which most likely is viral secondary to COVID-19 Patient was given empiric antibiotics for pneumonia but her CT scan did not show any inflammation Strep testing was negative Will hold further antibiotics at this time (4) JAMIN (acute kidney injury): Code(s): N17.9 - Acute kidney failure, unspecified Status: Acute Assessment and Plan: Likely secondary to hypotension and dehydration Resolved with IV fluids. Hold further IV fluids now Monitor urine output electrolytes and creatinine resolved (5) COVID-19: Code(s): U07.1 - COVID-19 Status: Acute Assessment and Plan: Patient tested positive for COVID-19. 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 Status: Acute Assessment and Plan: Patient has history of Brooks disease and was taking her prednisone and Florinef until Thursday Continue hydrocortisone restart home prednisone and Fludrocortisone monitor Plan DVT prophylaxis -Lovenox Stress ulcer prophylaxis -Protonix Nutrition -diet ordered Code Status - Full Code Incentive spirometry, up in chair Transfer out of ICU today Subjective Date/time seen: 09/10/23 13:43 Interval history: lethargic however stated she ahs had some improvement has been off Levophed and on Midodrine Review of Systems Review of Systems: All systems reviewed & are unremarkable except as noted in HPI and below (HPI) ROS unobtainable: Yes unobtainable due to mental status (Obtundation /lethargy) Exam Narrative: General: Pt is alert awake and in NAD Lungs/Chest: Trachea central Clear BS B/L, No crackles or wheezing. Cardiac: RRR. Normal S1 S2. No murmurs Circulation: Pedal pulses are intact and symmetrical. Abdomen: Normal bowel sounds.. Soft. NT. ND. Extremities: No clubbing, cyanosis or edema. Warm : Batista in place Neurologic: Follows commands. Moves all 4 extremities PERRL Skin: No Rash HEENT: Redness on the lateral and posterior aspect of pharynx which was examined on the 1st day Const: General: comfortable, no acute distress, well developed, lethargic, patient obtunded and average body habitus Nutritional Appearance: average body habitus Orientation/consciousness: patient oriented x3, patient obtunded and lethargic HENMT: Head: normal to inspection, normocephalic and atraumatic Ears: hearing grossly normal bilaterally Face/Nose/Sinus: normal facial exam Face and sinus: normal facial exam Eyes: General: appearance normal, both eyes and all related structures Pupils: Equal, round and reactive pupils present EOM: EOMs intact
--- NOTE | 2023-09-10 14:52 | PC.NURSE ---
This patient, Krista Chavira, was transferred to [facility] on 09/10/23 at 1445. Personal belongings sent with patient. Report given to RN. Appropriate documentation sent with patient.
--- NOTE | 2023-09-10 14:54 | PC.NURSE ---
This patient, Krista Chavira, was received from [icu] on 09/10/23 at 1450. Patient/family oriented to unit policies and routines.
[2023-09-10] MEDS: predniSONE 5 MG TABLET PO (16:32)
[2023-09-11] VITALS (9 sets, daily range): BP systolic 96–114; BP diastolic 57–80; PULSE 46–80; RESP 16–18; TEMP 36.2–36.6; O2SAT 96–100
[2023-09-11] MEDS: HYDROCORTISONE SODIUM SUCCINATE 100 MG/2 ML VIAL IV PUSH (05:31)
[2023-09-11] MEDS: LEVOTHYROXINE SODIUM 125 MCG TABLET PO (05:31)
[2023-09-11 07:11] LABS: Basophils Percent Auto 0.1 % (0.2-1.2); Eosinophils Percent Auto 0.1 % (0-4.4); Hematocrit 29.2 % (37.0-47.0); Hemoglobin 9.6 g/dL (12.0-15.0); Immature Granulocyte Absolute 0.07 K/mm3 (0.00-0.031); Immature Granulocyte Percent A 0.7 % (0-0.5); Lymphocytes Absolute Auto 1.06 K/mm3 (0.9-3.2); Mean Corpuscular HGB Conc 32.9 g/dl (32-36); Mean Corpuscular Hemoglobin 31.4 pg (26-34); Mean Corpuscular Volume 95.4 fl (80-100); Mean Platelet Volume 9.5 fl (7.4-10.4); Monocytes Absolute Auto 0.5 K/mm3 (0.1-0.6); Monocytes Percent Auto 5.1 % (2.6-8.5); Platelet Count Result 247 k/mm3 (150-375); Red Blood Count 3.06 M/mm3 (4.2-5.4); White Blood Count 9.6 K/mm3 (4.5-10.0)
[2023-09-11 07:20] LABS: Lactic Acid Reflex 1.3 mmol/L (0.7-2.0)
[2023-09-11 07:21] LABS: Alanine Aminotransferase 22 U/L (6-35); Albumin Level 3.3 g/dL (3.5-5.1); Alkaline Phosphatase 41 U/L (38-126); Anion Gap 6 mmol/L (8-16); Aspartate Amino Transferase 35 U/L (14-36); Bilirubin,Total 0.3 mg/dL (0.2-1.3); Blood Urea Nitrogen 11 mg/dL (7-17); Calcium 8.4 mg/dL (8.4-10.2); Carbon Dioxide 26 mmol/L (22-30); Chloride 103 mmol/L (98-107); Estimated CRCL calculation 92 ml/min; Estimated Glomerular Filt Rate > 60; Glucose 102 mg/dL (65-110); Magnesium 2.2 mg/dL (1.6-2.3); Potassium 3.9 mmol/L (3.4-5.0); Sodium 135 mmol/L (137-145)
[2023-09-11] MEDS: FLUDROCORTISONE ACETATE 0.1 MG TABLET PO (08:25)
[2023-09-11] MEDS: MIDODRINE HCL 10 MG TABLET PO ×3 (08:25→16:48)
[2023-09-11] MEDS: PANTOPRAZOLE 40 MG TABLET PO (08:25)
[2023-09-11] MEDS: ENOXAPARIN 40 MG/0.4 ML SYRINGE SUB-Q (08:25)
[2023-09-11] MEDS: predniSONE 5 MG TABLET PO ×2 (08:25→16:48)
[2023-09-11 13:19] LABS: Iron 73 ug/dL (37-170)
[2023-09-11 13:42] LABS: Percent Iron Saturation 29 % (20-50)
--- NOTE | 2023-09-11 16:57 | PM.IMPN ---
Progress Note: A&P Assessment and Plan (1) Hypotension: Qualifiers: Hypotension type: other hypotension type Qualified Code(s): I95.89 - Other hypotension Code(s): I95.9 - Hypotension, unspecified Status: Acute Assessment and Plan: Patient was found to be hypotensive in the ER. Her lactic acid level was normal. Likely multifactorial secondary to hypovolemia, dehydration, adrenal insufficiency and possible sepsis Blood pressure is now improved and patient has been weaned off Levophed discontinued Hydrocortisone and IVF Continue Midodrine, adjust tomorrow if BP holds firm without Hydrocortisone (2) Hypothyroidism: Code(s): E03.9 - Hypothyroidism, unspecified Status: Acute Assessment and Plan: Patient's TSH is high and T4 is low Her compliance is questionable I have resumed her levothyroxine (3) Sepsis: Qualifiers: Sepsis acute organ dysfunction status: unspecified Sepsis type: sepsis due to unspecified organism Qualified Code(s): A41.9 - Sepsis, unspecified organism Code(s): A41.9 - Sepsis, unspecified organism Status: Acute Assessment and Plan: Patient presented with findings consistent with sepsis She does have pharyngitis which most likely is viral secondary to COVID-19 Patient was given empiric antibiotics for pneumonia but her CT scan did not show any inflammation Strep testing was negative Will hold further antibiotics at this time (4) JAMIN (acute kidney injury): Code(s): N17.9 - Acute kidney failure, unspecified Status: Acute Assessment and Plan: Likely secondary to hypotension and dehydration Resolved with IV fluids. Hold further IV fluids now Monitor urine output electrolytes and creatinine resolved (5) COVID-19: Code(s): U07.1 - COVID-19 Status: Acute Assessment and Plan: Patient tested positive for COVID-19. She is on room air CT scan does not show any inflammatory changes in the lung No specific treatment COVID-19 except isolation and symptomatic treatment (6) [place] disease: Code(s): E27.1 - Primary adrenocortical insufficiency Status: Acute Assessment and Plan: Patient has history of [place] disease and was taking her prednisone and Florinef until Thursday stopped Hydrocortisone continue home prednisone and Fludrocortisone monitor Plan DVT prophylaxis -Lovenox Stress ulcer prophylaxis -Protonix Nutrition -diet ordered Code Status - Full Code Incentive spirometry, up in chair Subjective Date/time seen: 09/11/23 16:57 Interval history: patient noted continued improvement has been off Levophed and Hydrocortisone discontinued today if BP holds with discontinued of hydrocortisone overnight, will adjust Midodrine and dicharge on her Fluorinef and Prednisone Review of Systems Review of Systems: All systems reviewed & are unremarkable except as noted in HPI and below (HPI) ROS unobtainable: Yes unobtainable due to mental status (Obtundation /lethargy) Exam Narrative: General: Pt is alert awake and in NAD Lungs/Chest: Trachea central Clear BS B/L, No crackles or wheezing. Cardiac: RRR. Normal S1 S2. No murmurs Circulation: Pedal pulses are intact and symmetrical. Abdomen: Normal bowel sounds.. Soft. NT. ND. Extremities: No clubbing, cyanosis or edema. Warm : Batista in place Neurologic: Follows commands. Moves all 4 extremities PERRL Skin: No Rash HEENT: Redness on the lateral and posterior aspect of pharynx which was examined on the 1st day Const: General: comfortable, no acute distress, well developed, lethargic, patient obtunded and average body habitus Nutritional Appearance: average body habitus Orientation/consciousness: patient oriented x3, patient obtunded and lethargic HENMT: Head: normal to inspection, normocephalic and atraumatic Ears: hearing grossly normal bilaterally Face/Nose/Sinus: normal facial exam Face and sinus: normal fac
[2023-09-12] VITALS (9 sets, daily range): BP systolic 120–134; BP diastolic 71–84; PULSE 45–69; RESP 14–20; TEMP 36–36.5; O2SAT 98–100
[2023-09-12] MEDS: LEVOTHYROXINE SODIUM 125 MCG TABLET PO (05:52)
[2023-09-12 06:18] LABS: Basophils Percent Auto 0.1 % (0.2-1.2); Eosinophils Percent Auto 0.1 % (0-4.4); Hemoglobin 9.7 g/dL (12.0-15.0); Immature Granulocyte Absolute 0.04 K/mm3 (0.00-0.031); Immature Granulocyte Percent A 0.5 % (0-0.5); Lymphocytes Absolute Auto 2.29 K/mm3 (0.9-3.2); Mean Corpuscular HGB Conc 32.3 g/dl (32-36); Mean Corpuscular Hemoglobin 30.7 pg (26-34); Mean Corpuscular Volume 94.9 fl (80-100); Monocytes Absolute Auto 0.9 K/mm3 (0.1-0.6); Monocytes Percent Auto 10.2 % (2.6-8.5); Neutrophils Absolute Auto 5.3 K/mm3 (1.3-6.7); Neutrophils Percent Auto 62.1 % (45.5-73.1); Platelet Count Result 272 k/mm3 (150-375); Red Blood Count 3.16 M/mm3 (4.2-5.4); Red Cell Distribution Width 12.7 % (11.5-14.5); White Blood Count 8.5 K/mm3 (4.5-10.0)
[2023-09-12 06:24] LABS: Alanine Aminotransferase 26 U/L (6-35); Albumin Level 3.3 g/dL (3.5-5.1); Alkaline Phosphatase 35 U/L (38-126); Anion Gap 6 mmol/L (8-16); Aspartate Amino Transferase 37 U/L (14-36); Bilirubin,Total 0.3 mg/dL (0.2-1.3); Blood Urea Nitrogen 12 mg/dL (7-17); Calcium 8.5 mg/dL (8.4-10.2); Carbon Dioxide 27 mmol/L (22-30); Chloride 102 mmol/L (98-107); Estimated CRCL calculation 92 ml/min; Estimated Glomerular Filt Rate > 60; Glucose 70 mg/dL (65-110); Magnesium 2.1 mg/dL (1.6-2.3); Potassium 3.6 mmol/L (3.4-5.0); Sodium 135 mmol/L (137-145)
[2023-09-12] MEDS: PANTOPRAZOLE 40 MG TABLET PO (08:52)
[2023-09-12] MEDS: MIDODRINE HCL 10 MG TABLET PO ×3 (08:52→17:50)
[2023-09-12] MEDS: ENOXAPARIN 40 MG/0.4 ML SYRINGE SUB-Q (08:52)
[2023-09-12] MEDS: predniSONE 5 MG TABLET PO ×2 (08:52→17:50)
[2023-09-12] MEDS: FLUDROCORTISONE ACETATE 0.1 MG TABLET PO (08:52)
--- NOTE | 2023-09-12 10:05 | PM.IMPN ---
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 Status: Acute (4) Hypothyroidism: Code(s): E03.9 - Hypothyroidism, unspecified Status: Acute (5) COVID-19: Code(s): U07.1 - COVID-19 Status: Acute (6) Hypotension: Qualifiers: Hypotension type: other hypotension type Qualified Code(s): I95.89 - Other hypotension Code(s): I95.9 - Hypotension, unspecified Status: Acute (7) Altered mental status: Qualifiers: Altered mental status type: transient alteration of awareness Qualified Code(s): R40.4 - Transient alteration of awareness Code(s): R41.82 - Altered mental status, unspecified Status: Acute Plan Assessment and Plan (1) Hypotension: ?Qualifiers: ?Hypotension type:?other hypotension type? Qualified Code(s):?I95.89 - Other hypotension ?Code(s): I95.9 - Hypotension, unspecified ?Status:?Acute ?Assessment and Plan: Patient was found to be hypotensive in the ER.? Her lactic acid level was normal.? Likely multifactorial secondary to hypovolemia, dehydration, adrenal insufficiency and possible sepsis Blood pressure is now improved and patient has been weaned off Levophed discontinued Hydrocortisone and IVF Continue Midodrine, monitor BP (2) Hypothyroidism: ?Code(s): E03.9 - Hypothyroidism, unspecified ?Status:?Acute ?Assessment and Plan: Patient's TSH is high and T4 is low Her compliance is questionable I have resumed her levothyroxine (3) Sepsis: ?Qualifiers: ?Sepsis acute organ dysfunction status:?unspecified??Sepsis type:?sepsis due to unspecified organism? Qualified Code(s):?A41.9 - Sepsis, unspecified organism ?Code(s): A41.9 - Sepsis, unspecified organism ?Status:?Acute ?Assessment and Plan: Patient presented with findings consistent with sepsis She does have pharyngitis which most likely is viral secondary to COVID-19 Patient was given empiric antibiotics for pneumonia but her CT scan did not show any inflammation Strep testing was negative hold further antibiotics at this time (4) JAMIN (acute kidney injury): ?Code(s): N17.9 - Acute kidney failure, unspecified ?Status:?Acute ?Assessment and Plan: Likely secondary to hypotension and dehydration Resolved with IV fluids.? Hold further IV fluids now Monitor urine output electrolytes and creatinine resolved (5) COVID-19: ?Code(s): U07.1 - COVID-19 ?Status:?Acute ?Assessment and Plan: Patient tested positive for COVID-19.? 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 But still has general weakness, blood pressure stable, she is on her Fluorinef and Prednisone Exam Narrative: General: Pt is alert awake and in NAD Lungs/Chest: Trachea central Clear BS B/L, No
[2023-09-13] VITALS: PULSE 53
[2023-09-13 04:00] VITALS: PULSE 51
[2023-09-13] MEDS: LEVOTHYROXINE SODIUM 125 MCG TABLET PO (05:55)
[2023-09-13 06:00] VITALS: BP 110/79; PULSE 58; RESP 20; TEMP 36.3; O2SAT 98
[2023-09-13 06:04] LABS: Legionella pneumophila Ag Ur Not Detected (Not Detected)
[2023-09-13 06:18] LABS: Hematocrit 32.5 % (37.0-47.0); Hemoglobin 10.5 g/dL (12.0-15.0); Mean Corpuscular HGB Conc 32.3 g/dl (32-36); Mean Corpuscular Hemoglobin 30.8 pg (26-34); Mean Corpuscular Volume 95.3 fl (80-100); Mean Platelet Volume 9.6 fl (7.4-10.4); Platelet Count Result 284 k/mm3 (150-375); Red Blood Count 3.41 M/mm3 (4.2-5.4); Red Cell Distribution Width 12.8 % (11.5-14.5); White Blood Count 8.5 K/mm3 (4.5-10.0)
[2023-09-13 06:28] LABS: Alanine Aminotransferase 34 U/L (6-35); Albumin Level 3.5 g/dL (3.5-5.1); Alkaline Phosphatase 43 U/L (38-126); Anion Gap 5 mmol/L (8-16); Aspartate Amino Transferase 33 U/L (14-36); Bilirubin,Total 0.3 mg/dL (0.2-1.3); Blood Urea Nitrogen 10 mg/dL (7-17); Calcium 8.6 mg/dL (8.4-10.2); Carbon Dioxide 30 mmol/L (22-30); Chloride 99 mmol/L (98-107); Estimated CRCL calculation 68 ml/min; Estimated Glomerular Filt Rate > 60; Glucose 69 mg/dL (65-110); Magnesium 2.1 mg/dL (1.6-2.3); Potassium 3.5 mmol/L (3.4-5.0); Sodium 134 mmol/L (137-145)
[2023-09-13] MEDS: ENOXAPARIN 40 MG/0.4 ML SYRINGE SUB-Q (09:10)
[2023-09-13] MEDS: PANTOPRAZOLE 40 MG TABLET PO (09:10)
[2023-09-13] MEDS: FLUDROCORTISONE ACETATE 0.1 MG TABLET PO (09:10)
[2023-09-13] MEDS: MIDODRINE HCL 10 MG TABLET PO ×2 (09:10→13:43)
[2023-09-13] MEDS: predniSONE 5 MG TABLET PO (09:10)
[2023-09-13 12:00] VITALS: PULSE 54
--- NOTE | 2023-09-13 12:20 | PM.DS ---
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 Status: Acute (4) Hypothyroidism: Code(s): E03.9 - Hypothyroidism, unspecified Status: Acute (5) COVID-19: Code(s): U07.1 - COVID-19 Status: Acute (6) Hypotension: Qualifiers: Hypotension type: other hypotension type Qualified Code(s): I95.89 - Other hypotension Code(s): I95.9 - Hypotension, unspecified Status: Acute (7) Altered mental status: Qualifiers: Altered mental status type: transient alteration of awareness Qualified Code(s): R40.4 - Transient alteration of awareness Code(s): R41.82 - Altered mental status, unspecified Status: Acute DS: Summary Hospital Course Reason for hospitalization: 53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 Please see H&P for further details. Hospital Course: Patient was found to be hypotensive in the ER.? Her lactic acid level was normal.?She was started on IVF, steroids and levophed and admitted to the ICU. Likely multifactorial secondary to hypovolemia, dehydration, adrenal insufficiency and possible sepsis. Blood pressure improved and patient has been weaned off Levophed. She was also able to be weaned off the hydrocortisone and IVF. She was started on midodrine as well. Patient's TSH was high and T4 is low. Her compliance is questionable so we just resumed her home levothyroxine dose. Patient presented with findings consistent with sepsis. She was positive for COVID PCR on admission. WBC was 13.[address] chest showing moderate esophagitis/gastritis but no concern for PNA. Protonix started. BCx were NGTD. She does have pharyngitis which most likely is viral secondary to COVID-19. Patient was given empiric antibiotics for pneumonia but since her CT scan did not show any inflammation, abx were stopped. Strep testing was negative. She had JAMIN likely secondary to hypotension and dehydration. JAMIN resolved with IV fluids. Patient tested positive for COVID-19.? She remained on room air. No specific treatment for COVID-19 except isolation and symptomatic treatment per risk and insurance manager. Patient has history of Lipscomb disease and was taking her prednisone and Florinef until Thursday. She was Hypotensive on presentation treated with Hydrocortisone. his was eventually stopped and home prednisone and Fludrocortisone resumed. She feels much better. BP stable on midodrine. She was up ambulating in the room. She feels ready for discharge. She overall did well and was able to be discharged home on 09/13/23 Of note: her home medication list was incomplete. levothyroxine, Prednisone and Florinef are home meds. Status at Discharge Cognitive/behavioral status at discharge: stable Time Spent with Patient Time attestation: Total time spent providing and/or coordinating discharge services: 36 minutes Time spent: Greater than 30 minutes Exam Narrative: AF 97.4 110/79 58 20 98% ra Gen - NARD Chest - CTA bilaterally, nml RR CV - RRR S1/S2. Tele showing no significant dysrhythmias Abd - Soft, NT/ND, Positive BS Ext - No pedal edema Neuro - Alert and oriented. Nonfocal exam. Psych - Nml mood and affect Skin - Warm and dry DS: Data Data Completed and Pending Labs on day of discharge: Labs from last 24 hours 09/13/23 09/08/23 06:00 22:48 WBC 8.5
[2023-09-13] MEDS: NEOMYCIN/POLYMYXIN/BACITRACIN OINTMENT PACKET 1 PACKET (13:43)
== END 2023-09-13 14:24 | disposition home or self-care (01) | DRG 871 ==
LOC: ANHED 16:00 → ANH3MEDSUR 19:28 → ANHICU 23:15 → ANH3MEDSUR 09-10 14:51
PROVIDERS: Internal Medicine; Admitting Provider Family Medicine; Emergency Provider Student in an Organized Health Care Education/Training Program; PCP Hospitalist; Visit Provider Internal Medicine
DX: A41.89 Other specified sepsis (principal); U07.1 COVID-19; N17.9 Acute kidney failure, unspecified; E87.1 Hypo-osmolality and hyponatremia; G93.49 Other encephalopathy; E27.1 Primary adrenocortical insufficiency; I95.9 Hypotension, unspecified; J02.8 Acute pharyngitis due to other specified organisms; E87.8 Other disorders of electrolyte and fluid balance, not elsewhere classified; E03.9 Hypothyroidism, unspecified; K29.70 Gastritis, unspecified, without bleeding; K20.90 Esophagitis, unspecified without bleeding; F32.A Depression, unspecified; Z87.891 Personal history of nicotine dependence
CPT/HCPCS: 36415; 70491; 71045; 71260; 76775; 80053; 81001; 82550; 82728; 83540; 83550; 83605; 83735; 83880; 84145; 84439; 84443; 85025; 85027; 86308; 87040; 87449; 87636; 87651; 93005; 93306; 96360; 99285; A9270; C1751; J0456; J0696; J1650; J1720; J3475; J7030; J7120; J7512; J8540; P9041; Q9967